=== PATIENT | male | born 1955 ===

== ENCOUNTER 2018-09-14 12:18 | Day surgery (SDC) | payer OTHER ==
[~2018-09-14] VITALS: Ht 182.9 cm; Wt 86.2 kg
[2018-09-14] MEDS ORDERED: LEVSOD50 (12:44)
[2018-09-14] MEDS ORDERED: AMLO10 (12:45)
== END 2018-09-14 14:31 | disposition home or self-care (01) ==
LOC: ORSCSDS 12:18
PROVIDERS: Surgery
PROC: 0DBN8ZX Excision of Sigmoid Colon, Via Natural or Artificial Opening Endoscopic, Diagnostic (ICD-10-PCS; principal; 2018-09-14 13:30)
PROC: 0DBM8ZX Excision of Descending Colon, Via Natural or Artificial Opening Endoscopic, Diagnostic (ICD-10-PCS; principal; 2018-09-14 13:30)
PROC: 0DBK8ZX Excision of Ascending Colon, Via Natural or Artificial Opening Endoscopic, Diagnostic (ICD-10-PCS; principal; 2018-09-14 13:30)
DX: Z12.11 Encounter for screening for malignant neoplasm of colon (principal); D12.2 Benign neoplasm of ascending colon; D12.4 Benign neoplasm of descending colon; D12.5 Benign neoplasm of sigmoid colon; F17.210 Nicotine dependence, cigarettes, uncomplicated; I10 Essential (primary) hypertension; E03.9 Hypothyroidism, unspecified; F41.8 Other specified anxiety disorders; Z79.899 Other long term (current) drug therapy
CPT/HCPCS: 88305; J2704; J7120

== ENCOUNTER → 2018-12-06 | Outpatient (CLI) | payer OTHER ==
[~2018-12-06] MED LIST: AMLO10; LEVSOD50
[2018-12-06 10:34] LABS: BASOPHILS ABSOLUTE AUTO 0.01 K/mm3 (0.00-0.23); BASOPHILS PERCENT AUTO 0 % (0-2); EOSINOPHILS ABSOLUTE AUTO 0.07 K/mm3 (0.00-0.68); EOSINOPHILS PERCENT AUTO 2 % (0-6); Hematocrit 35.9 % (37.0-53.0); IMMATURE GRAN ABSOLUTE AUTO 0.01 K/mm3 (0.00-0.10); IMMATURE GRAN PERCENT AUTO 0 % (0-1); LYMPHOCYTES ABSOLUTE AUTO 1.83 K/mm3 (0.84-5.20); LYMPHOCYTES PERCENT AUTO 43 % (21-46); MONOCYTES ABSOLUTE AUTO 0.53 K/mm3 (0.16-1.47); MONOCYTES PERCENT AUTO 12 % (4-13); Mean Corpuscular HGB Conc 33.4 g/dL (31.5-36.5); Mean Corpuscular Volume 102 fL (80-100); Mean Platelet Volume 9.7 fL (9.1-12.4); NEUTROPHILS ABSOLUTE AUTO 1.86 K/mm3 (1.96-9.15); NEUTROPHILS PERCENT AUTO 43 % (41-73); Platelet Count 250 K/mm3 (150-400); RDW Coefficient Variation 12.9 % (11.7-14.2); RDW Standard Deviation 48.4 fL (35.1-46.3); Red Blood Cell Count 3.53 M/mm3 (4.30-5.90); White Blood Cell Count 4.31 K/mm3 (4.00-11.30)
== END ==
LOC: LAB SHORT 09:54 → LAB 09:54
PROVIDERS: Registered Nurse Oncology
DX: E83.119 Hemochromatosis, unspecified (principal)
CPT/HCPCS: 85025

== ENCOUNTER 2019-05-11 06:15 | Day surgery (SDC) | payer OTHER ==
[~2019-05-11] VITALS: Ht 180.3 cm; Wt 90.7 kg
[~2019-05-11 06:15] MED LIST changes: +AMLODIPINE BESY10 MG PO; +BUSP10 PO; +IBU600 MG PO; -LEVSOD50; +LEVSOD50 PO; +SILDENAFIL20 MG PO
== END 2019-05-11 09:45 | disposition home or self-care (01) ==
LOC: ORSCSDS 06:15
PROVIDERS: Orthopaedic Surgery
PROC: 01N40ZZ Release Ulnar Nerve, Open Approach (ICD-10-PCS; principal; 2019-05-11 07:30)
PROC: 01N54ZZ Release Median Nerve, Percutaneous Endoscopic Approach (ICD-10-PCS; principal; 2019-05-11 07:30)
DX: G56.22 Lesion of ulnar nerve, left upper limb (principal); G56.02 Carpal tunnel syndrome, left upper limb; I10 Essential (primary) hypertension; E03.9 Hypothyroidism, unspecified; F41.9 Anxiety disorder, unspecified; Z79.899 Other long term (current) drug therapy
CPT/HCPCS: J0171; J0690; J1100; J1885; J2250; J2405; J2704; J3010; J7120

== ENCOUNTER → 2019-09-05 | Outpatient (CLI) | payer OTHER | END | disposition home or self-care (01) | LOC: LAB 09:45 → LAB SHORT 09:45 | DX: M25.522 Pain in left elbow (principal); M25.422 Effusion, left elbow | CPT/HCPCS: 87070; 87075; 87205 ==

== ENCOUNTER 2019-10-18 08:58 | Day surgery (SDC) | payer OTHER ==
[~2019-10-18] VITALS: Ht 180.3 cm; Wt 86.1 kg
== END 2019-10-18 11:08 | disposition home or self-care (01) ==
LOC: ORSCSDS 08:58
PROVIDERS: Surgery
PROC: 0DBN8ZX Excision of Sigmoid Colon, Via Natural or Artificial Opening Endoscopic, Diagnostic (ICD-10-PCS; principal; 2019-10-18 10:30)
PROC: 0DBH8ZX Excision of Cecum, Via Natural or Artificial Opening Endoscopic, Diagnostic (ICD-10-PCS; principal; 2019-10-18 10:30)
PROC: 0DBM8ZX Excision of Descending Colon, Via Natural or Artificial Opening Endoscopic, Diagnostic (ICD-10-PCS; principal; 2019-10-18 10:30)
DX: Z86.010 Personal history of colon polyps (principal); D12.0 Benign neoplasm of cecum; D12.4 Benign neoplasm of descending colon; D12.5 Benign neoplasm of sigmoid colon; I10 Essential (primary) hypertension; E03.9 Hypothyroidism, unspecified; Z79.899 Other long term (current) drug therapy
CPT/HCPCS: 88305; J2704; J7120

== ENCOUNTER → 2021-04-29 | Outpatient (CLI) | payer OTHER | END | disposition home or self-care (01) | LOC: LAB SHORT 11:19 | DX: L30.8 Other specified dermatitis (principal) | CPT/HCPCS: 88305; 88312 ==

== ENCOUNTER 2023-02-17 09:02 | Day surgery (SDC) | payer OTHER ==
[~2023-02-17] VITALS: Ht 182.9 cm; Wt 86.5 kg
--- NOTE | 2023-02-17 10:30 | NUR ---
02/17/23 1030 Cas Alvarez CALL LIGHT WITHIN REACH.
[2023-02-17 11:43] VITALS: BP 108/82
--- NOTE | 2023-02-17 11:49 | NUR ---
02/17/23 Cas Sandhu IV REMOVE FROM RIGHT FOREARM. IV CATHETER INTACT. PT TOLERATED IV REMOVAL WELL.
== END 2023-02-17 11:49 | disposition home or self-care (01) ==
LOC: ORSCSDS 09:02
PROVIDERS: Surgery
PROC: 0DBH8ZX Excision of Cecum, Via Natural or Artificial Opening Endoscopic, Diagnostic (ICD-10-PCS; principal; 2023-02-17 10:30)
PROC: 0DBM8ZX Excision of Descending Colon, Via Natural or Artificial Opening Endoscopic, Diagnostic (ICD-10-PCS; principal; 2023-02-17 10:30)
PROC: 0DBK8ZX Excision of Ascending Colon, Via Natural or Artificial Opening Endoscopic, Diagnostic (ICD-10-PCS; principal; 2023-02-17 10:30)
DX: Z12.11 Encounter for screening for malignant neoplasm of colon (principal); D12.0 Benign neoplasm of cecum; D12.2 Benign neoplasm of ascending colon; D12.4 Benign neoplasm of descending colon; Z86.010 Personal history of colon polyps; E03.9 Hypothyroidism, unspecified; E78.5 Hyperlipidemia, unspecified; I10 Essential (primary) hypertension; F32.A Depression, unspecified; F41.9 Anxiety disorder, unspecified; Z79.899 Other long term (current) drug therapy; F17.290 Nicotine dependence, other tobacco product, uncomplicated
CPT/HCPCS: 88305; J2704; J7120

== ENCOUNTER 2023-05-27 02:57 | Day surgery (SDC) | payer OTHER | END 2023-05-27 23:15 | disposition home or self-care (01) | LOC: WOUND 02:57 | DX: T23.35 Burn of third degree of palm (principal); T23.251D Burn of second degree of right palm, subsequent encounter; T20.10XD Burn of first degree of head, face, and neck, unspecified site, subsequent encounter | CPT/HCPCS: A9270 ==

== ENCOUNTER 2023-06-04 01:39 | Day surgery (SDC) | payer OTHER ==
[2023-06-04] MEDS ORDERED: Lidocaine HCl 4% Cream 5 GM ONE ×2 (08:07→08:08)
[2023-06-04] MEDS ORDERED: Silver Sulfadiazine 1% Cream 25 APPLIC/25 GM Tube ONE (08:09)
== END 2023-06-04 22:49 | disposition home or self-care (01) ==
LOC: WOUND 01:39
DX: T23.35 Burn of third degree of palm (principal); T23.251D Burn of second degree of right palm, subsequent encounter; T20.10XD Burn of first degree of head, face, and neck, unspecified site, subsequent encounter; X15.0XXD Contact with hot stove (kitchen), subsequent encounter
CPT/HCPCS: A9270

== ENCOUNTER 2023-06-11 01:39 | Day surgery (SDC) | payer OTHER ==
[2023-06-11] MEDS ORDERED: Silver Sulfadiazine 1% Cream 25 APPLIC/25 GM Tube ONE (08:22)
[2023-06-11] MEDS ORDERED: Lidocaine HCl 4% Cream 5 GM ONE (08:22)
== END 2023-06-11 22:47 | disposition home or self-care (01) ==
LOC: WOUND 01:39
PROC: 0JBJ0ZZ Excision of Right Hand Subcutaneous Tissue and Fascia, Open Approach (ICD-10-PCS; principal; 2023-06-11)
DX: T23.35 Burn of third degree of palm (principal); T23.251D Burn of second degree of right palm, subsequent encounter; T20.10XD Burn of first degree of head, face, and neck, unspecified site, subsequent encounter
CPT/HCPCS: A9270

== ENCOUNTER 2023-06-18 03:11 | Day surgery (SDC) | payer OTHER ==
[2023-06-18] MEDS ORDERED: Lidocaine HCl 4% Cream 5 GM ONE (09:54)
[2023-06-18] MEDS ORDERED: Silver Sulfadiazine 1% Cream 25 APPLIC/25 GM Tube ONE (09:57)
== END 2023-06-18 22:45 | disposition home or self-care (01) ==
LOC: WOUND 03:11
DX: T23.35 Burn of third degree of palm (principal); T23.251D Burn of second degree of right palm, subsequent encounter; T20.10XD Burn of first degree of head, face, and neck, unspecified site, subsequent encounter; X15.0XXD Contact with hot stove (kitchen), subsequent encounter
CPT/HCPCS: A9270

== ENCOUNTER 2024-08-11 07:11 | Day surgery (SDC) | payer OTHER ==
[~2024-08-11] VITALS: Ht 182.9 cm; Wt 84.0 kg
[2024-08-11] MEDS ORDERED: ATOR40TA (07:22)
[2024-08-11] MEDS ORDERED: Lactated Ringer's 1,000 ML IV ONE ×2 (07:57→08:10)
[2024-08-11] MEDS ORDERED: propofoL 50 ML IV ONE (07:57)
[2024-08-11 09:10] VITALS: BP 112/73
== END 2024-08-11 09:12 | disposition home or self-care (01) ==
LOC: ORSCSDS 07:11
PROVIDERS: Surgery
PROC: 0DBM8ZX Excision of Descending Colon, Via Natural or Artificial Opening Endoscopic, Diagnostic (ICD-10-PCS; principal; 2024-08-11 08:30)
DX: Z12.11 Encounter for screening for malignant neoplasm of colon (principal); Z86.0100 Personal history of colon polyps, unspecified; D12.4 Benign neoplasm of descending colon; K57.30 Diverticulosis of large intestine without perforation or abscess without bleeding; I10 Essential (primary) hypertension; F41.9 Anxiety disorder, unspecified; F32.A Depression, unspecified; E78.5 Hyperlipidemia, unspecified; E03.9 Hypothyroidism, unspecified; F17.210 Nicotine dependence, cigarettes, uncomplicated; Z79.899 Other long term (current) drug therapy
CPT/HCPCS: 88305; J2704; J7120